=== PATIENT | female | born 1935 ===

== ENCOUNTER → 2018-02-22 | Outpatient (CLI) | payer MEDICARE ==
[~2018-02-22] MED LIST: AMLO-111 PO; CHOL10005 PO; CYCL-277 PO; ESCI10TA8 PO; FLU180SY11 IM; FLU180SY9 IM; FLU45SYR17 IM; FLU45SYR25 IM ONLY; FLUT16SP19 NS; LISI-351 PO; LISI-355 PO; LOR5/325 PO; PNEU0.5D3 IM; POTA-23 PO; SIMV-49 PO; TRAM-420 PO; [UNRECOGNIZED DRUG - CODE] PO; [UNRECOGNIZED DRUG - CODE] PO
[2018-02-22 13:51] LABS: PLATELET COUNT, AUTOMATED 287 K/uL (150-450)
[2018-02-22 14:14] LABS: LDL CHOLESTEROL 61 mg/dl
== END ==
LOC: LAB 13:03
PROVIDERS: ATTEND Internal Medicine
DX: E11.9 Type 2 diabetes mellitus without complications (principal); E55.9 Vitamin D deficiency, unspecified; E78.5 Hyperlipidemia, unspecified; I10 Essential (primary) hypertension
CPT/HCPCS: 36415; 82040; 82247; 82306; 82310; 82374; 82435; 82465; 82565; 82947; 83036; 83718; 84075; 84132; 84155; 84295; 84443; 84450; 84460; 84478; 84520; 85025

== ENCOUNTER → 2018-06-17 | Outpatient (CLI) | payer MEDICARE ==
[~2018-06-17] MED LIST changes: -AMLO-111 PO; +AMLO-125 PO; +AMLO-127 PO; +CHOL100061 PO; +LISI20TA29 PO; +MELO-207 PO
[2018-06-17 14:05] LABS: PLATELET COUNT, AUTOMATED 280 K/uL (150-450)
[2018-06-17 14:43] LABS: LDL CHOLESTEROL 43 mg/dl
--- NOTE | 2018-06-17 15:00 | EKG ---
FACILITY: [facility] - [place] PATIENT NAME: ALISTAIR FERGUSON : [id number] MR: [id number] V: [id number] EXAM DATE: ORDERING PHYSICIAN: KOFFI MCDOWELL TECHNOLOGIST: LOLA Test Reason : DIZZINESS Blood Pressure : / mmHG Vent. Rate : 065 BPM Atrial Rate : 065 BPM P-R Int : 158 ms QRS Dur : 122 ms QT Int : 438 ms P-R-T Axes : 000 186 135 degrees QTc Int : 455 ms Normal sinus rhythm Right bundle branch block Abnormal ECG No previous ECGs available Referred By: KRISTIAN Confirmed By:
== END ==
LOC: LAB 13:19
PROVIDERS: ATTEND Internal Medicine
DX: F41.9 Anxiety disorder, unspecified (principal); I10 Essential (primary) hypertension; E78.5 Hyperlipidemia, unspecified; E55.9 Vitamin D deficiency, unspecified; M54.5 Low back pain; R41.3 Other amnesia; I45.10 Unspecified right bundle-branch block; R94.31 Abnormal electrocardiogram [ECG] [EKG]
CPT/HCPCS: 36415; 82040; 82247; 82306; 82310; 82374; 82435; 82465; 82565; 82607; 82746; 82947; 83718; 84075; 84132; 84155; 84295; 84443; 84450; 84460; 84478; 84520; 85025

== ENCOUNTER → 2018-06-29 | Outpatient (CLI) | payer MEDICARE ==
[~2018-06-29] MED LIST changes: +GADOBENATE 529MG/1ML 15ML VIAL IVP ONE
--- NOTE | 2018-06-29 13:29 | RADIOLOGY IMAGING REPORT ---
FACILITY: [facility] - [place] PATIENT NAME: Mely Crowe : 1935 MR: [id number] V: [id number] EXAM DATE: ORDERING PHYSICIAN: KOFFI MCDOWELL TECHNOLOGIST: Location: [facility] Patient: Mely Crowe : 1935 Visit/Account:[id number] Date of Sevice: 06/29/2018 Examination: MR brain without and with contrast History: Lightheadedness Comparison: None Technique: Multiplane MR imaging was performed through the brain without and with contrast. 11 cc IV multihance was administered. Findings: Diffusion: Benign diffusion bright signal in the choroid plexus. Ventricles: Normal Midline shift: None Extraxial fluid: None Midline craniocervical structures: Partially empty sella. Parenchyma: Less than 10 scattered punctate to small white matter high signal foci. Enhancement: No pathologic enhancement Vascular flow voids: Normal Orbits and paranasal sinuses: Small right maxillary sinus mucous retention cyst. Other: No significant additional finding. Impression: 1. No acute intracranial abnormality. 2. Minimal chronic small vessel ischemic change. 3. Otherwise normal brain MR without and with contrast. Report Dictated By: Rufino Isaacs MD at 06/29/2018 1:21 PM Report E-Signed By: Rufino Isaacs MD at 06/29/2018 1:25 PM WSN:[email or web address]
== END ==
LOC: MRI 00:58
PROVIDERS: ATTEND Internal Medicine
DX: R41.3 Other amnesia (principal); R42 Dizziness and giddiness
CPT/HCPCS: 70553; A9577

== ENCOUNTER → 2018-08-09 | Outpatient (CLI) | payer MEDICARE ==
[~2018-08-09] MED LIST changes: +CAR6.25 PO; +CYAN100088 PO; -GADOBENATE 529MG/1ML 15ML VIAL IVP ONE
[2018-08-09 11:17] LABS: PLATELET COUNT, AUTOMATED 227 K/uL (150-450)
== END ==
LOC: LAB 10:59
PROVIDERS: ATTEND Internal Medicine
DX: E78.5 Hyperlipidemia, unspecified (principal); R41.3 Other amnesia; R42 Dizziness and giddiness; I10 Essential (primary) hypertension; F41.9 Anxiety disorder, unspecified; E55.9 Vitamin D deficiency, unspecified; E53.8 Deficiency of other specified B group vitamins
CPT/HCPCS: 36415; 82040; 82247; 82306; 82310; 82374; 82435; 82565; 82607; 82746; 82947; 83036; 84075; 84132; 84155; 84295; 84450; 84460; 84520; 85025

== ENCOUNTER → 2018-09-15 | Outpatient (CLI) | payer MEDICARE ==
--- NOTE | 2018-09-15 16:51 | RADIOLOGY IMAGING REPORT ---
FACILITY: [facility] PATIENT NAME: Mely Crowe : 1935 MR: [id number] V: [id number] EXAM DATE: ORDERING PHYSICIAN: KOFFI MCDOWELL TECHNOLOGIST: Location: [facility] Patient: Mely Crowe : 1935 Visit/Account:[id number] Date of Sevice: 09/15/2018 EXAMINATION: Doppler ultrasound carotid HISTORY: Dizziness COMPARISON: None. TECHNIQUE: Real-time grayscale, color flow and Doppler sonography of the cervical carotid and vertebr al arteries is performed. Stenosis % is determined from velocity criteria extrapolated from diameter data as defined by the Soc iety of Radiologists in Ultrasound Consensus Conference Radiology 2003; 229;340-346. FINDINGS: Plaque: There is mild scattered atherosclerotic plaque is present, greatest in each carotid bulb and bifurcation, and appears mostly soft. Mild plaque heterogeneity is seen in the right carotid bulb. Waveforms: Normal morphology with mildly turbulent vascular flow in each mid and distal internal car otid artery where mild tortuosity is seen. Vertebral arteries: Antegrade flow in both vertebral arteries. Peak systolic velocities are listed below in centimeters/second: Right: CCA proximal: 106 CCA mid: 86 CCA distal: 71 Bulb: 80 ICA proximal: 96 ICA mid: 101 ICA distal: 111 ECA: 94 Vertebral: 42 ICA/CCA ratio: 1.3 Left: CCA proximal: 106 CCA mid: 99 CCA distal: 94 Bulb: 93 ICA proximal: 87 ICA mid: 93 ICA distal: 103 ECA: 85 Vertebral: 60 ICA/CCA ratio: 1.04 Note: A small coarse shadowing calcification is incidentally demonstrated within the right lobe of th yroid gland of 0.4 cm. A benign appearing right neck lymph node is present of 1.4 x 0.7 x 0.8 cm, wi th normal morphology. IMPRESSION: 1. No hemodynamically significant stenosis of greater than 50% bilaterally. 2. Atherosclerosis with possible mild plaque heterogeneity right carotid bulb. 3. Mildly turbulent vascular flow in each mid to distal internal carotid artery may be secondary to vessel tortuosity there. 4. Right lobe thyroid gland calcification of 0.4 cm is incidentally noted. Consider dedicated thyro id ultrasound for further evaluation. 5. Incidental benign appearing right neck lymph node. Report Dictated By: Erika Whitlock MD at 09/15/2018 4:40 PM Report E-Signed By: Erika Whitlock MD at 09/15/2018 4:46 PM WSN:[email or web address]
== END ==
LOC: US 00:31
PROVIDERS: ATTEND Internal Medicine
DX: I51.7 Cardiomegaly (principal)
CPT/HCPCS: 93306; 93880

== ENCOUNTER → 2018-11-11 | Outpatient (CLI) | payer MEDICARE ==
[~2018-11-11] MED LIST changes: +ESCI20TA8 PO
--- NOTE | 2018-11-11 15:01 | RADIOLOGY IMAGING REPORT ---
FACILITY: [facility] - [place] PATIENT NAME: Mely Crowe : 1935 MR: [id number] V: [id number] EXAM DATE: ORDERING PHYSICIAN: KOFFI MCDOWELL TECHNOLOGIST: Location: Patient: Mely Crowe : 1935 Visit/Account:[id number] Date of Sevice: 11/11/2018 Exam type: KUB SINGLE VIEW ABDOMEN History: Diarhea Comparison: None. Findings: There is a nonspecific bowel gas pattern. There is a levoconvex scoliosis lumbar spine with associat ed degenerative changes. There is old posttraumatic deformity of the left-sided the pubis which is i ncompletely imaged. There are vascular calcifications in the abdominal aorta. IMPRESSION: 1. Nonspecific bowel gas pattern Report Dictated By: Leann Gutiérrez MD at 11/11/2018 2:52 PM Report E-Signed By: Leann Guitérrez MD at 11/11/2018 2:53 PM WSN:[email or web address]
== END ==
LOC: RAD 13:26
PROVIDERS: ATTEND Internal Medicine
DX: R19.7 Diarrhea, unspecified (principal)
CPT/HCPCS: 74018